=== PATIENT | female | born 1985 | race Caucasian/White ===

== ENCOUNTER 2021-03-09 08:33 | Emergency (ER) | payer BC ==
[~2021-03-09] VITALS: Ht 167.6 cm; Wt 79.4 kg
[2021-03-09 09:14] LABS: URINE BILIRUBIN NEGATIVE (Negative); URINE BLOOD TRACE (Negative); URINE CLARITY SL CLOUDY; URINE COLOR YELLOW; URINE GLUCOSE-RANDOM* NEGATIVE (Negative); URINE KETONES 2+ (Negative); URINE NITRITE-REFLEX NEGATIVE (Negative); URINE PROTEIN (DIPSTICK) NEGATIVE (Negative)
[2021-03-09 09:19] LABS: URINE LEUKOCYTES-REFLEX 3+ (Negative)
[2021-03-09 09:21] LABS: ABSOLUTE NEUTROPHILS 4.8 thou/uL (1.4-8.2); EOSINOPHILS 2.9 % (0.0-3.0); HEMATOCRIT 41.8 % (37.0-47.0); LYMPHOCYTES 21.2 % (24.0-44.0); MCH 30.7 pg (26.0-34.0); MCHC 33.4 g/dL (28.0-37.0); MCV 91.6 fL (80.0-100.0); MONOCYTES 5.6 % (1.0-8.0); PLATELET COUNT 232 thou/uL (150-400); POLYS 69.3 % (36.0-66.0); RBC 4.56 mil/uL (4.20-5.00); RDW 14.9 % (10.5-14.5)
[2021-03-09 09:30] LABS: BACTERIA-REFLEX 1-9 Few /HPF (None Seen); CASTS None Seen /LPF (None Seen); CRYSTALS None Seen /LPF (None Seen); SQUAMOUS None Seen /LPF (0-3); URINE RBC None Seen /HPF (NONE SEEN); URINE WBC-REFLEX 0-5 Rare /HPF (0-5)
[2021-03-09 09:54] LABS: CALCIUM 9.2 mg/dL (8.5-10.1); CREATININE 0.7 mg/dL (0.6-1.0)
[2021-03-09 12:46] VITALS: BP 109/66
[2021-03-09] MEDS ORDERED: PERCOCET 5-3251 EACH PO (12:49)
[2021-03-12] MEDS ORDERED: MACROBID 100 M100 M1 PO (12:05)
== END 2021-03-09 12:51 | disposition home or self-care (01) ==
LOC: ER 08:33
PROVIDERS: Student in an Organized Health Care Education/Training Program
DX: N83.202 Unspecified ovarian cyst, left side (principal); R10.84 Generalized abdominal pain; Z88.8 Allergy status to other drugs, medicaments and biological substances